=== PATIENT | male | born 2000 | race Two or more races ===

== ENCOUNTER 2020-02-08 17:42 | Emergency (ER) | payer BC, OTHER ==
[2020-02-08] MEDS ORDERED: Sodium Chloride 0.9% 10 ML Syringe FLUSH PRN (18:02)
[2020-02-08] MEDS ORDERED: Famotidine 20 MG/2 ML SDV IVPUSH ONE (18:02)
[2020-02-08] MEDS ORDERED: methylPREDNISolone Sodium Succinate 125 MG/2 ML SDV IVPUSH ONE (18:02)
[2020-02-08] MEDS ORDERED: diphenhydrAMINE 50 MG/ML SDV IVPUSH ONE (18:02)
--- NOTE | 2020-02-08 18:07 | EDM.PDOC ---
ED HPI GENERAL MEDICAL PROBLEM - General Chief Complaint: Allergic Reaction Stated Complaint: SKIN COMPLAINT/RASH ALL OVER Time Seen by Provider: 02/08/20 17:55 Source of Information: Reports: Patient History Limitations: Reports: No Limitations - History of Present Illness INITIAL COMMENTS - FREE TEXT/NARRATIVE: The patient presents with a rash. This started a few days ago after taking ibuprofen. The patient has never had this happen before. He had a sore throat initially when this started but none now. He has no shortness of breath. He has no trouble breathing He has a rash over most of his body. He has no other health problems. Onset: Gradual Duration: Day(s): Location: Reports: Generalized Quality: Reports: Other (Itchy) Severity: Moderate Improves with: Reports: None Worsens with: Reports: None Associated Symptoms: Reports: No Other Symptoms - Related Data Allergies Allergy/AdvReac Type Severity Reaction Status Date / Time No Known Allergies Allergy Verified 02/08/20 17:57 Home Meds: Home Meds predniSONE [Prednisone] 40 mg PO DAILY #10 tablet 02/08/20 [Rx] Past Medical History Musculoskeletal History: Reports: Other (See Below) Other Musculoskeletal History: right arm surgery Social & Family History - Tobacco Use Tobacco Use Status *Q: Never Tobacco User Second Hand Smoke Exposure: No - Caffeine Use Caffeine Use: Reports: Coffee, Energy Drinks, Soda - Recreational Drug Use Recreational Drug Use: No ED ROS ALLERGIC REACTION - Review of Systems Review Of Systems: See Below Constitutional: Reports: No Symptoms HEENT: Reports: No Symptoms Respiratory: Reports: No Symptoms Cardiovascular: Reports: No Symptoms Endocrine: Reports: No Symptoms GI/Abdominal: Reports: No Symptoms : Reports: No Symptoms Musculoskeletal: Reports: No Symptoms Skin: Reports: Rash (Generalized macular rash) ED EXAM GENERAL NO PERIP PULSE - Physical Exam Exam: See Below Exam Limited By: No Limitations General Appearance: Alert, No Apparent Distress Ears: Normal External Exam Throat/Mouth: Normal Inspection Head: Atraumatic, Normocephalic Neck: Normal Inspection Respiratory/Chest: No Respiratory Distress, Lungs Clear, Normal Breath Sounds Cardiovascular: Regular Rate, Rhythm, No Edema, No Murmur GI/Abdominal: Soft, Non-Tender, No Organomegaly, No Mass Neurological: Alert, Oriented, No Motor/Sensory Deficits Skin Exam: Rash (Rash on the back, chest, neck, arms and a little on the legs that is macular.) Course - Vital Signs Last Recorded V/S: Last Vital Signs Temp 98.1 F 02/08/20 17:56 Pulse 96 02/08/20 17:56 Resp 18 02/08/20 17:56 BP 126/80 02/08/20 17:56 Pulse Ox 100 02/08/20 17:56 - Orders/Labs/Meds Orders: Active Orders 24 hr Category Date Time Status Peripheral IV Care [RC] . DIRECTED Care 02/08/20 18:02 Active Sodium Chloride 0.9% [Saline Flush] Med 02/08/20 18:02 Active 10 ml FLUSH ASDIRECTED PRN Peripheral IV Insertion Adult [OM.PC] Routine Oth 02/08/20 18:02 Ordered Medication Orders Sodium Chloride (Saline Flush) 10 ml FLUSH ASDIRECTED PRN PRN Reason: Keep Vein Open Last Admin: 02/08/20 18:12 Dose: 10 ml Documented by: TERESITA Meds: Medications Generic Name Dose Route Start Last Admin Trade Name Freq PRN Reason Stop Dose Admin Sodium Chloride 10 ml 02/08/20 18:02 02/08/20 18:12 Saline Flush FLUSH 10 ml ASDIRECTED PRN Administration Keep Vein Open Discontinued Medications Generic Name Dose Route Start Last Admin Trade Name Freq PRN Reason Stop Dose Admin Diphenhydramine HCl 50 mg 02/08/20 18:02 02/08/20 18:13 Benadryl IVPUSH 02/08/20 18:03 50 mg ONETIME ONE Administration Famotidine 20 mg 02/08/20 18:02 02/08/20 18:12 Pepcid IVPUSH 02/08/20 18:03 20 mg ONETIME ONE Administration Methylprednisolone Sodium Succinate 125 mg 02/08/20 18:02 02/08/20 18:13 Solu-Medrol IVPUSH 02/08/20 18:03 125 mg ONETIME ONE Administration - Re-Assessments/Exams Free Text/Narrative Re-Assessment/Exam: 02/08/20 18:06 It appears he is reacting to the ibuprofen. I will have my nurse put an IV in and give him solu-medrol 125mg IV, pepcid 20mg IV, and benadryl 50mg IV. 02/08/20 18:41 He is doing good. The rash is not worse. I will discharge him home on some prednisone. Departure - Departure Time of Disposition: 18:45 Disposition: Home, Self-Care 01 Condition: Good Clinical Impression: Drug allergy - Discharge Information *PRESCRIPTION DRUG MONITORING PROGRAM REVIEWED*: Not Applicable *COPY OF PRESCRIPTION DRUG MONITORING REPORT IN PATIENT [place]: Not Applicable Prescriptions: predniSONE [Prednisone] 40 mg PO DAILY #10 tablet Referrals: Anahi Gallegos, [employer] [Primary Care Provider] - 1 Week Forms: ED Department Discharge Additional Instructions: Do not take ibuprofen again. Ibuprofen comes in generic form and in motrin and advil. Take prednisone daily for 5 days. Take pepcid daily for 1 week. Take benadryl 50mg by mouth every 6 hours as needed for the rash or allergy symptoms. Please return if you are worse. Sepsis Event Note (ED) - Evaluation Sepsis Screening Result: No Definite Risk - Focused Exam Vital Signs: Vital Signs Temp Pulse Resp BP Pulse Ox 02/08/20 17:56 98.1 F 96 18 126/80 100 - My Orders Last 24 Hours: My Active Orders 02/08/20 18:02 Peripheral IV Care [RC] . DIRECTED Sodium Chloride 0.9% [Saline Flush] 10 ml FLUSH ASDIRECTED PRN Peripheral IV Insertion Adult [OM.PC] Routine - Assessment/Plan Last 24 Hours: My Active Orders 02/08/20 18:02 Peripheral IV Care [RC] . DIRECTED Sodium Chloride 0.9% [Saline Flush] 10 ml FLUSH ASDIRECTED PRN Peripheral IV Insertion Adult [OM.PC] Routine
== END 2020-02-08 18:50 | disposition home or self-care (01) ==
LOC: JD.ED 17:42
DX: L27.0 Generalized skin eruption due to drugs and medicaments taken internally (principal); T39.315A Adverse effect of propionic acid derivatives, initial encounter
CPT/HCPCS: 96374; 96375; 99283; J1200; J2930; J3490

== ENCOUNTER 2020-10-16 02:50 | Emergency (ER) | payer BC, OTHER ==
--- NOTE | 2020-10-16 03:30 | EDM.PDOC ---
ED HPI GENERAL MEDICAL PROBLEM - General Chief Complaint: Chest Pain Stated Complaint: side pain Time Seen by Provider: 10/16/20 03:22 - History of Present Illness INITIAL COMMENTS - FREE TEXT/NARRATIVE: 20-year-old male presents the emergency room with chest pain. This chest pain started several hours ago. It hurts when he takes a deep breath in. The pain gets worse as he breathes in then improves as he breathes out. The patient has felt well for the last few days but prior to this he had a generalized illness was in a cough he just felt crummy. Patient has never had pain like this in the past he has no history of heart problems. The patient adamantly denies any use of illicit drugs's specifically cocaine or meth. Left Chest Pain Score (Numeric/FACES): 10 - Related Data Allergies Allergy/AdvReac Type Severity Reaction Status Date / Time No Known Allergies Allergy Verified 10/16/20 03:06 Home Meds: Home Meds predniSONE [Prednisone] 40 mg PO DAILY #10 tablet 02/08/20 [Rx] Acetaminophen/HYDROcodone [HYDROcodone-Acetaminophen 5-525 MG *] 1 - 2 tab PO Q6H PRN #20 each 10/16/20 [Rx] Naproxen 500 mg PO BID #30 tablet 10/16/20 [Rx] Past Medical History - Past Health History Medical/Surgical History: Denies Medical/Surgical History Musculoskeletal History: Reports: Other (See Below) Other Musculoskeletal History: right arm surgery Social & Family History - Tobacco Use Tobacco Use Status *Q: Never Tobacco User - Caffeine Use Caffeine Use: Reports: Coffee, Energy Drinks, Soda ED ROS GENERAL - Review of Systems Review Of Systems: See Below Constitutional: Reports: No Symptoms HEENT: Reports: No Symptoms Respiratory: Reports: No Symptoms Cardiovascular: Reports: Chest Pain Endocrine: Reports: No Symptoms GI/Abdominal: Reports: No Symptoms Neurological: Reports: No Symptoms ED EXAM, GENERAL - Physical Exam Exam: See Below Exam Limited By: No Limitations General Appearance: Alert, No Apparent Distress Head: Atraumatic, Normocephalic Neck: Normal Inspection, Supple, Non-Tender, Full Range of Motion. No: Lymphadenopathy (L), Lymphadenopathy (R) Respiratory/Chest: No Respiratory Distress, Lungs Clear, Normal Breath Sounds Cardiovascular: Regular Rate, Rhythm, No Edema, No Murmur GI/Abdominal: Normal Bowel Sounds, Soft, Non-Tender Back Exam: Normal Inspection. No: CVA Tenderness (L), CVA Tenderness (R) #1 Interpretation EKG Date: 10/16/20 Rhythm: NSR Rate (Beats/Min): 77 [place]: Normal P-Wave: Present QRS: Normal ST-T: Other (Diffuse ST depression especially inferior and lateral leads) QT: Normal FL/PQ Interval: FL interval shows upsloping in aVR downsloping in most the other leads Comparison: NA - No Prior EKG EKG Interpretation Comments: Abnormal EKG most consistent with pericarditis. Course - Vital Signs Last Recorded V/S: Last Vital Signs Temp 36.6 C 10/16/20 03:03 Pulse 85 10/16/20 03:03 Resp 20 10/16/20 03:03 BP 144/77 H 10/16/20 03:03 Pulse Ox 97 10/16/20 03:03 - Orders/Labs/Meds Orders: Active Orders 24 hr Category Date Time Status EKG Documentation Completion [RC] STAT Care 10/16/20 03:30 Active Chest 2V [CR] Stat Exams 10/16/20 03:30 Taken Labs: Laboratory Tests 10/16/20 10/16/20 10/16/20 Range/Units 04:01 04:01 04:01 WBC 8.49 (4.23-9.07) K/mm3 RBC 4.37 L (4.63-6.08) M/mm3 Hgb 13.0 L (13.7-17.5) gm/dl Hct 39.1 L (40.1-51.0) % MCV 89.5 (79.0-92.2) fl MCH 29.7 (25.7-32.2) pg MCHC 33.2 (32.2-35.5) g/dl RDW Std Deviation 42.9 (35.1-43.9) fL Plt Count 320 (163-337) K/mm3 MPV 7.6 L (9.4-12.3) fl Neut % (Auto) 64.5 (34.0-67.9) % Lymph % (Auto) 17.9 L (21.8-53.1) % Barnes % (Auto) 15.7 H (5.3-12.2) % Eos % (Auto) 1.4 (0.8-7.0) Baso % (Auto) 0.4 (0.1-1.2) % Neut # (Auto) 5.48 H (1.78-5.38) K/mm3 Lymph # (Auto) 1.52 (1.32-3.57) K/mm3 Barnes # (Auto) 1.33 H (0.30-0.82) K/mm3 Eos # (Auto) 0.12 (0.04-0.54) K/mm3 Baso # (Auto) 0.03 (0.01-0.08) K/mm3 Manual Slide Review Abnormal smear ESR 53 H (0-15) mm/hr PT 10.1 (9.7-12.0) SECONDS INR 0.94 APTT 30.5 (21.7-31.4) SECONDS Sodium (136-145) mEq/L Potassium (3.5-5.1) mEq/L Chloride (98-107) mEq/L Carbon Dioxide (21-32) mEq/L Anion Gap (5-15) BUN (7-18) mg/dL Creatinine (0.7-1.3) mg/dL Est Cr Clr Drug Dosing mL/min Estimated GFR (MDRD) (>60) mL/min BUN/Creatinine Ratio (14-18) Glucose (70-99) mg/dL Calcium (8.5-10.1) mg/dL Total Bilirubin (0.2-1.0) mg/dL AST (15-37) U/L ALT (16-63) U/L Alkaline Phosphatase (46-116) U/L Troponin I (0.00-0.056) ng/mL C-Reactive Protein (<1.0) mg/dL Total Protein (6.4-8.2) g/dl Albumin (3.4-5.0) g/dl Globulin gm/dL Albumin/Globulin Ratio (1-2) SARS-CoV-2 RNA (JERI) (NEGATIVE) 10/16/20 10/16/20 Range/Units 04:01 05:43 WBC (4.23-9.07) K/mm3 RBC (4.63-6.08) M/mm3 Hgb (13.7-17.5) gm/dl Hct (40.1-51.0) % MCV (79.0-92.2) fl MCH (25.7-32.2) pg MCHC (32.2-35.5) g/dl RDW Std Deviation (35.1-43.9) fL Plt Count (163-337) K/mm3 MPV (9.4-12.3) fl Neut % (Auto) (34.0-67.9) % Lymph % (Auto) (21.8-53.1) % Barnes % (Auto) (5.3-12.2) % Eos % (Auto) (0.8-7.0) Baso % (Auto) (0.1-1.2) % Neut # (Auto) (1.78-5.38) K/mm3 Lymph # (Auto) (1.32-3.57) K/mm3 Barnes # (Auto) (0.30-0.82) K/mm3 Eos # (Auto) (0.04-0.54) K/mm3 Baso # (Auto) (0.01-0.08) K/mm3 Manual Slide Review ESR (0-15) mm/hr PT (9.7-12.0) SECONDS INR APTT (21.7-31.4) SECONDS Sodium 141 (136-145) mEq/L Potassium 4.1 (3.5-5.1) mEq/L Chloride 104 (98-107) mEq/L Carbon Dioxide 29 (21-32) mEq/L Anion Gap 12.1 (5-15) BUN 13 (7-18) mg/dL Creatinine 1.0 (0.7-1.3) mg/dL Est Cr Clr Drug Dosing 97.02 mL/min Estimated GFR (MDRD) > 60 (>60) mL/min BUN/Creatinine Ratio 13.0 L (14-18) Glucose 108 H (70-99) mg/dL Calcium 9.2 (8.5-10.1) mg/dL Total Bilirubin 0.6 (0.2-1.0) mg/dL AST 90 H (15-37) U/L ALT 223 H (16-63) U/L Alkaline Phosphatase 275 H (46-116) U/L Troponin I < 0.017 (0.00-0.056) ng/mL C-Reactive Protein 4.6 H* (<1.0) mg/dL Total Protein 8.5 H (6.4-8.2) g/dl Albumin 3.1 L (3.4-5.0) g/dl Globulin 5.4 gm/dL Albumin/Globulin Ratio 0.6 L (1-2) SARS-CoV-2 RNA (JERI) Negative (NEGATIVE) Meds: Medications Discontinued Medications Generic Name Dose Route Start Last Admin Trade Name Diego PRN Reason Stop Dose Admin Hydrocodone Bitart/Acetaminophen 1 tab 10/16/20 06:38 Acetaminophen/Hydrocodone 325-5 Mg Tab PO 10/16/20 06:39 ONETIME ONE Hydromorphone HCl 0.5 mg 10/16/20 03:35 10/16/20 03:42 Hydromorphone 0.5 Mg/0.5 Ml Syringe IM 10/16/20 03:36 0.5 mg ONETIME ONE Administration Ketorolac Tromethamine 30 mg 10/16/20 05:19 10/16/20 05:30 Ketorolac 30 Mg/Ml Sdv IM 10/16/20 05:20 30 mg ONETIME ONE Administration - Re-Assessments/Exams Free Text/Narrative Re-Assessment/Exam: 10/16/20 04:09 Chest x-ray is nonacute no cardiomegaly. EKG has diffuse ST elevation changes especially in the inferior and lateral leads. Resembles pericarditis he also has FL upsloping in aVR and downsloping in most other leads, also consistent with pericarditis. Labs pending 10/16/20 06:39 Patient is doing better after shot of Toradol. However he still having pretty significant pain will give [place] No. 1 right now and I will send a prescription off so he has [place] as well. I stressed the importance of close clinical follow-up to make sure this condition improves. If he is not showing improvement by the mid part of this next week strong consideration should be given to rechecking inflammatory markers and consideration given for imaging to ensure he is not developing a significant pericardial effusion. The patient understands to return to the emergency room if he thinks his symptoms are worsening. Departure - Departure Time of Disposition: 05:25 Disposition: Home, Self-Care 01 Clinical Impression: Pericarditis - Discharge Information Prescriptions: Naproxen 500 mg PO BID #30 tablet Referrals: PCP,None [Primary Care Provider] - Forms: ED Department Discharge Additional Instructions: Return to the emergency room with any questions problems or worsening symptoms. Follow-up in the clinic at the end of this week for recheck. The phone number to the hospital clinic is [phone]. Take the Naprosyn twice daily with meals. If needed for more pain control I given you hydrocodone take one or two every 6 hours as needed however allow 12 hours after using this medication before driving or returning to work. Also this medication can cause constipation if using on a regular basis use a good stool softener. Sepsis Event Note (ED) - Evaluation Sepsis Screening Result: No Definite Risk - Focused Exam Vital Signs: Vital Signs Temp Pulse Resp BP Pulse Ox 10/16/20 03:03 36.6 C 85 20 144/77 H 97 - My Orders Last 24 Hours: My Active Orders 10/16/20 03:30 EKG Documentation Completion [RC] STAT Chest 2V [CR] Stat - Assessment/Plan Last 24 Hours: My Active Orders 10/16/20 03:30 EKG Documentation Completion [RC] STAT Chest 2V [CR] Stat
[2020-10-16] MEDS ORDERED: HYDROmorphone 0.5 MG/0.5 ML Syringe IM ONE (03:35)
[2020-10-16] MEDS ORDERED: Ketorolac 30 MG/ML SDV IM ONE (05:19)
[2020-10-16] MEDS ORDERED: Acetaminophen/HYDROcodone 325-5 MG Tab PO ONE (06:38)
--- NOTE | 2020-10-16 08:06 | CR ---
Chest: 2 views of the chest were obtained. Comparison: No prior chest imaging is available. Heart size and mediastinum are normal. Lungs are clear with no acute parenchymal change. Bony structures are unremarkable for the patient's age. Impression: 1. Nothing acute is seen on 2 view chest x-ray. Diagnostic code #1
== END 2020-10-16 06:51 | disposition home or self-care (01) ==
LOC: JD.ED 02:50
DX: I31.9 Disease of pericardium, unspecified (principal); R94.31 Abnormal electrocardiogram [ECG] [EKG]; Z20.822 Contact with and (suspected) exposure to COVID-19
CPT/HCPCS: 36415; 71046; 80053; 84484; 85025; 85610; 85652; 85730; 86140; 87635; 93005; 96372; 99285; A9270; J1170; J1885; 93010; 99283; U0002